=== PATIENT | male | born 1985 | race Caucasian/White ===

== ENCOUNTER 2022-10-04 11:29 | Emergency (ER) | payer OTHER ==
[2022-10-04] MEDS ORDERED: LORazepam 2 MG/ML SDV IVPUSH ONE (11:48)
[2022-10-04] MEDS ORDERED: Metoclopramide 10 MG/2 ML SDV IVPUSH ONE (11:49)
[2022-10-04] MEDS ORDERED: Thiamine 100 MG in Sodium Chloride 0.9% 100 ML IV ONE (11:51)
[2022-10-04] MEDS ORDERED: Dextrose 5%-Lactated Ringers 1,000 ML IV SCH (12:00)
[2022-10-04 12:09] LABS: BASOPHILS ABSOLUTE AUTO 0.03 K/mm3 (0.01-0.08); BASOPHILS PERCENT AUTO 0.3 % (0.1-1.2); HEMATOCRIT 45.5 % (40.1-51.0); HEMOGLOBIN 15.2 gm/dl (13.7-17.5); IMMATURE GRAN ABSOLUTE AUTO 0.02 K/mm3 (0.00-0.10); IMMATURE GRAN PERCENT AUTO 0.2 % (<=1.0); LYMPHOCYTES ABSOLUTE AUTO 2.32 K/mm3 (1.32-3.57); LYMPHOCYTES PERCENT AUTO 22.9 % (21.8-53.1); MEAN CORPUSCULAR HEMOGLOBIN 31.5 pg (25.7-32.2); MEAN CORPUSCULAR HGB CONC 33.4 g/dl (32.2-35.5); MEAN CORPUSCULAR VOLUME 94.4 fl (79.0-92.2); MEAN PLATELET VOLUME 10.4 fl (9.4-12.3); MONOCYTES PERCENT AUTO 6.9 % (5.3-12.2); NEUTROPHILS ABSOLUTE AUTO 6.86 K/mm3 (1.78-5.38); NEUTROPHILS PERCENT AUTO 67.7 % (34.0-67.9); PLATELET COUNT,PLT 342 K/mm3 (163-337); RED BLOOD CELL COUNT 4.82 M/mm3 (4.63-6.08); WHITE BLOOD CELL COUNT,WBC 10.13 K/mm3 (4.23-9.07)
[2022-10-04] MEDS ORDERED: Thiamine 200 MG/2 ML MDV IVPUSH ONE (12:15)
[2022-10-04 12:16] LABS: INR 0.96; PROTHROMBIN TIME 10.3 SECONDS (9.7-12.0)
[2022-10-04 12:18] LABS: PTT,PARTIAL THROMBOPLSTIN TIME 25.6 SECONDS (21.7-31.4)
[2022-10-04 12:19] LABS: ALBUMIN 4.2 g/dl (3.4-5.0); ANION GAP 16.9 (5-15); BILIRUBIN TOTAL 0.3 mg/dL (0.2-1.0); BUN/CREATININE RATIO 13.6 (14-18); CALCIUM 9.8 mg/dL (8.5-10.1); CREATININE 1.1 mg/dL (0.7-1.3); EST CRCL DRUG DOSING (CG) 84.58 mL/min; MAGNESIUM 2.2 mg/dL (1.8-2.4); POTASSIUM,K 3.9 mEq/L (3.5-5.1); PROTEIN TOTAL,TP 8.4 g/dl (6.4-8.2)
[2022-10-04 12:52] LABS: BARBITURATE SCREEN,URINE NEGATIVE (CUTOFF=200); BENZODIAZEPINES SCREEN,URINE NEGATIVE (CUTOFF=150); BUPRENORPHINE SCREEN,URINE NEGATIVE (CUTOFF=10); METHADONE SCREEN, URINE NEGATIVE (CUT0FF=200); METHAMPHETAMINES SCREEN, URINE NEGATIVE (CUTOFF=500); OXYCODONE SCREEN,URINE NEGATIVE (CUT0FF=100); PROPOXYPHENE SCREEN,URINE NEGATIVE (CUTOFF=300); THC SCREEN,URINE 20 NG/ML NEGATIVE (CUTOFF=50)
[2022-10-04 12:53] LABS: AMPHETAMINES SCREEN, URINE NEGATIVE (CUTOFF=500)
== END 2022-10-04 14:02 | disposition home or self-care (01) ==
LOC: JD.ED 11:29
DX: M79.2 Neuralgia and neuritis, unspecified (principal); E86.9 Volume depletion, unspecified; F10.20 Alcohol dependence, uncomplicated
CPT/HCPCS: 36415; 70450; 80053; 80306; 80307; 82947; 83690; 83735; 85025; 85610; 85730; 96361; 96374; 96375; 99284; J2060; J2765; J3411; J7121